=== PATIENT | female | born 1960 | race Caucasian/White ===

== ENCOUNTER 2024-04-26 13:52 | Outpatient (CLI) | payer MEDICARE, BC, SELFPAY ==
--- NOTE | ~2024-04-26 | MM_ITS ---
EXAMINATION: MM screening farhad BI w reddy HISTORY: Screening mammogram, family history of breast cancer in her mother. TECHNIQUE: Craniocaudal and mediolateral oblique 3-D tomosynthesis images were obtained and synthetic 2-D images were generated. CAD analysis was submitted and interpreted. COMPARISON: No prior mammogram is available for comparison at this institution. BREAST PARENCHYMAL COMPOSITION:Not Dense. The breasts are almost entirely fatty FINDINGS: No suspicious mass, calcification, or architectural distortion are identified in either veronica ast to suggest malignancy. There has been no suspicious interval change. IMPRESSION: No mammographic evidence of malignancy. Recommend routine screening mammography in one year. BI-RADS Category 1: Negative Reviewed, dictated and finalized at location . ANALYST
== END 2024-04-26 13:53 | disposition home or self-care (01) ==
PROVIDERS: PCP Family Medicine; Visit Provider Family Medicine
DX: Z12.31 Encounter for screening mammogram for malignant neoplasm of breast (principal)
CPT/HCPCS: 77063; 77067

== ENCOUNTER 2024-05-06 12:06 | Outpatient (CLI) | payer MEDICARE, SELFPAY ==
--- NOTE | ~2024-05-06 | XR_ITS ---
XR cervical spine 4-5V DATE: 05/06/2024 12:33 INDICATION: Polyneuropathy. Numbness and tingling TECHNIQUE: AP, open-mouth, lateral, swimmer views COMPARISON: None FINDINGS: There is osteopenia. There is prominent fracture deformity of the second cervical vertebral body, of uncertain age, more l ikely chronic. No prior radiograph available for comparison. CT cervical spine examination is recomme nded. C1 and C2 are normally aligned. There is minimal anterolisthesis at C4-5. There is moderate degenerative disc disease at C5-6 and C6-7. There is minimal anterolisthesis at C7-T1. There is prominent likely chronic fracture deformity of T1 with loss of height and anterior wedging. There is also inferior vertebral endplate cupping of T2 and T3. IMPRESSION: Fracture deformities of C2 and T1; CT examination is recommended if no prior CT is availa ble for comparison There is an inferior vertebral endplate cupping of T2 and T3 as well. Moderate degenerative disc disease at C5-6 and C6-7 Minimal anterolisthesis at C4-5 and C7-T1 Reviewed, dictated and finalized at location A. 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 Moderate degenerative disc disease at C5-6 and C6-7 Minimal anterolisthesis at C4-5 and C7-T1
== END 2024-05-06 12:07 | disposition home or self-care (01) ==
PROVIDERS: PCP Family Medicine; Visit Provider Family Medicine
DX: M43.8X2 Other specified deforming dorsopathies, cervical region (principal); M43.8X4 Other specified deforming dorsopathies, thoracic region; M50.33 Other cervical disc degeneration, cervicothoracic region; M51.34 Other intervertebral disc degeneration, thoracic region; G62.9 Polyneuropathy, unspecified; M79.603 Pain in arm, unspecified
CPT/HCPCS: 72050

== ENCOUNTER 2024-06-24 08:02 | Outpatient (CLI) | payer MEDICARE, SELFPAY ==
--- NOTE | ~2024-06-24 | DEXA_ITS ---
Bone Density Report Name: GINO BRANCH Age: 64 Sex: Female Ethnicity: White Date of : 1960 Indication: postmenopausal; screening for osteoporosis; prior fracture; asthma or emphysema; hysterectomy; Referring Provider: KATELYN MOSQUEDA Study: Bone densitometry was performed. Exam Date: June 24, 2024 Accession number: [id number] Bone Density: Region BMD T-score Z-score Classification AP Spine(L2, L3, L4) 0.738 -3.1 -1.2 Osteoporosis Femoral Neck (Left) 0.574 -2.5 -0.9 Osteoporosis Total Hip (Left) 0.696 -2.0 -0.7 Osteopenia Femoral Neck (Right) 0.597 -2.3 -0.7 Osteopenia Total Hip (Right) 0.689 -2.1 -0.8 Osteopenia Total Hip Mean 0.692 -2.1 -0.8 Osteopenia World Health Organization criteria for BMD impression classify patients as: Normal (T-score at or above -1.0), Osteopenia (T-score between -1.0 and -2.5), or Osteoporosis (T-score at or below -2.5). 10-year Fracture Risk: FRAX not reported because: Some T-score for Spine Total or Hip Total or Femoral Neck at or below -2.5 Prior hip or vertebral fracture Clinical Information Provided by Patient: Have had a previous hip or vertebral fracture Has had a low trauma fracture Has used the following medications: Fosamax (i.e. alendronate), Vitamin D, Calcium Has the following medical conditions: Asthma or Emphysema, Hysterectomy Patient maximum height was 69 Menopause Age: 53 No regular weight bearing exercise Drinks caffeinated beverages Onset of menses at age 13 Number of children 2 Impression: The patient has established osteoporosis, based on the Total Spine T-score and the existence of a prior fracture. The patient has risk factors, including: previous fracture. Discussion: HIGH RISK OF FRACTURE. BONE DENSITY IS UNDESIRABLY LOW AT ONE OR MORE SKELETAL SITES, CONSISTENT WITH POSTMENOPAUSAL OSTEOPOROSIS. This patient's lowest T-score, in a patient who has previously fractured, meets the World Health Organization's (WHO) criteria for severe osteoporosis. In untreated patients, the risk of osteoporotic fracture increases approximately two-fold for each 1.0 SD decrease in T-score. Low bone density is not the only risk factor for fracture; also consider factors such as patient's age, frailty or poor health, risk of falling, risk of injury, previous osteoporotic fracture, family history of osteoporosis, cigarette smoking, low body weight, etc. Not everyone with low bone mineral density has osteoporosis; osteomalacia and other metabolic bone disorders should also be considered. Patients who have osteoporosis should be evaluated for specific diseases and conditions (secondary causes) that may cause or contribute to bone loss. The [place] [employer]ocrinologists (AACE) and National Osteoporosis Foundation (NOF) recommend pharmacologic intervention for all postmenopausal women with a previous hip or vertebral fracture and a T-score in this range. The patient should follow a healthful lifestyle (good nutrition with adequate calcium and vitamin D, and appropriate weight-bearing exercise). Follow-Up: Consider a repeat BMD and Vertebral Fracture Assessment (VFA) exam in 2 years or sooner if medically necessary, to reassess this patient's status. Reported by: NEIL on 06/24/2024 8:49:00 AM. Reviewed, dictated and finalized at location AMagdiel EMERY
== END 2024-06-24 08:03 | disposition home or self-care (01) ==
LOC: ANHIMG 08:07
PROVIDERS: PCP Family Medicine; Visit Provider Family Medicine
DX: M81.0 Age-related osteoporosis without current pathological fracture (principal); M85.89 Other specified disorders of bone density and structure, multiple sites; Z78.0 Asymptomatic menopausal state; Z13.820 Encounter for screening for osteoporosis
CPT/HCPCS: 77080

== ENCOUNTER 2024-06-27 09:06 | Outpatient (CLI) | payer MEDICARE, SELFPAY ==
--- NOTE | 2024-06-27 09:13 | EST_ITS ---
Patient Info Name: Tamie Velazquez Age: 64 years : 1960 Gender: Female Ht: 67 in Wt: 150 lbs BSA: 1.80 m2 HR: 71 bpm BP: 132 / 73 mmHg Heart Rhythm: Sinus Rhythm Exam Date: 06/27/2024 9:26 AM Exam Location: [facility] Patient Status: Outpatient Admit Date: 06/27/2024 Staff Ordering Physician: Jagdish Arthur DO Attending Provider: Jagdish Arthur DO Exercise Technologist: Donna Carrera RDCS Exercise Physician: Jagdish Arthur DO Exam Type: CA stress test treadmill Study Info A treadmill exercise stress test was performed. Summary 1. 1. Negative Tutu exercise stress test for ischemic ST changes by ECG criteria. 2. 2. Reduced functional capacity, achieving 6 METs of workload. 3. 3. Appropriate HR response to exercise. 4. 4. Appropriate HR recovery at 1 minute post exercise. 5. 5. No imaging with stress testing. 6. 6. Patient informed of the above results. Protocol: Tutu Stress ECG Details Stage: REST Duration (min): 1 min : 2 sec Speed (mph): 0.0 Grade (%): 0 HR (bpm): 70 SBP (mmHg): 132 DBP (mmHg): 73 METS: --- Stage: REST Duration (min): 3 min : 29 sec Speed (mph): 0.0 Grade (%): 0 HR (bpm): 76 SBP (mmHg): 132 DBP (mmHg): 73 METS: --- Stage: STAGE 1 Duration (min): 1 min : 0 sec Speed (mph): 1.7 Grade (%): 10 HR (bpm): 97 SBP (mmHg): 132 DBP (mmHg): 73 METS: --- Stage: STAGE 1 Duration (min): 2 min : 0 sec Speed (mph): 1.7 Grade (%): 10 HR (bpm): 119 SBP (mmHg): 132 DBP (mmHg): 73 METS: --- Stage: STAGE 1 Duration (min): 3 min : 0 sec Speed (mph): 1.7 Grade (%): 10 HR (bpm): 136 SBP (mmHg): 179 DBP (mmHg): 68 METS: --- Stage: STAGE 2 Duration (min): 1 min : 0 sec Speed (mph): 2.5 Grade (%): 12 HR (bpm): 146 SBP (mmHg): 179 DBP (mmHg): 68 METS: --- Stage: STAGE 2 Duration (min): 1 min : 0 sec Speed (mph): 2.5 Grade (%): 12 HR (bpm): 146 SBP (mmHg): 179 DBP (mmHg): 68 METS: --- Stage: RECOVERY Duration (min): 0 min : 59 sec Speed (mph): 0.0 Grade (%): 0 HR (bpm): 117 SBP (mmHg): 185 DBP (mmHg): 65 METS: --- Stage: RECOVERY Duration (min): 1 min : 59 sec Speed (mph): 0.0 Grade (%): 0 HR (bpm): 98 SBP (mmHg): 185 DBP (mmHg): 65 METS: --- Stage: RECOVERY Duration (min): 2 min : 59 sec Speed (mph): 0.0 Grade (%): 0 HR (bpm): 89 SBP (mmHg): 187 DBP (mmHg): 64 METS: --- Stage: RECOVERY Duration (min): 3 min : 59 sec Speed (mph): 0.0 Grade (%): 0 HR (bpm): 81 SBP (mmHg): 187 DBP (mmHg): 64 METS: --- Stage: RECOVERY Duration (min): 4 min : 59 sec Speed (mph): 0.0 Grade (%): 0 HR (bpm): 81 SBP (mmHg): 164 DBP (mmHg): 66 METS: --- Stage: RECOVERY Duration (min): 5 min : 27 sec Speed (mph): 0.0 Grade (%): 0 HR (bpm): 83 SBP (mmHg): 164 DBP (mmHg): 66 METS: --- Rest HR: 76 bpm Peak HR: 148 bpm Rest Sys BP: 132 mmHg Peak Sys BP: 185 mmHg Max Pred HR: 154 bpm % Max Pred HR: 96 % Target HR: 131 bpm Max RPP: 27,380 bpm*mmHg Carl Score: -1 Termination Reason: Reached target heart rate or workload Cardiac Symptoms: Shortness of breath Max ST Seg Deviation: -1.10 mm Total Time: 4 min : 0 sec Rest Villegas BP: 73 mmHg Peak Villegas BP: 65 mmHg Angina Score: None Total METS: 6.5 Resting ECG Sinus rhythm. Stress ECG No ST changes. Arrhythmias None. Report Signatures
== END 2024-06-27 09:07 | disposition home or self-care (01) ==
PROVIDERS: PCP Family Medicine; Visit Provider Internal Medicine Cardiovascular Disease
DX: R07.9 Chest pain, unspecified (principal)
CPT/HCPCS: 93017